=== PATIENT | female | born 1995 | race African-American/Black ===

== ENCOUNTER 2019-08-03 10:50 | Inpatient (IN) | payer MEDICAID, OTHER ==
[~2019-08-03] VITALS: Ht 157.5 cm; Wt 110.7 kg
[2019-08-03] MEDS ORDERED: SODIUM CHLORIDE 0.9% 1,000 ML IV ONE (11:21)
[2019-08-03] MEDS ORDERED: ACETAMINOPHEN 500MG TABLET PO ONE (11:30)
[2019-08-03] MEDS ORDERED: SODIUM CHLORIDE 0.9% 1000ML BAG (SEPSIS BOLUS) IV ONE (11:30)
[2019-08-03 12:12] LABS: BASOPHILS % 0.2 % (0.0-2.0); EOSINOPHILS % 0.1 % (0.0-5.0); HEMATOCRIT. 38.7 % (36.0-48.0); HEMOGLOBIN. 13.1 g/dL (12.0-16.0); LYMPHOCYTES % 13.9 % (20.0-50.0); MEAN CORPUSCULAR HEMOGLOBIN 26.3 pg (28.0-32.0); MEAN CORPUSCULAR VOLUME 77.6 fL (81.0-99.0); MEAN PLATELET VOLUME 9.5 fl (7.4-10.4); MONOCYTES % 4.6 % (2.0-8.0); NEUTROPHILS % 81.2 % (40.0-76.0); PLATELET 218 x1000/uL (130-400); RED BLOOD CELL COUNT 4.99 mill/uL (4.2-5.4); RED CELL DISTRIBUTION WIDTH 16.4 % (11.6-14.6)
[2019-08-03 12:17] LABS: CHLORIDE 105 mEq/L (98-107)
[2019-08-03 12:26] LABS: CREATINE KINASE 130 IU/L (26-192); D-DIMER 0.53 mg/L FEU (<0.50); INR 0.9; PROTHROMBIN TIME 10.3 sec (9.6-11.0)
[2019-08-03 12:39] LABS: CLARITY URINE CLEAR (CLEAR); COLOR URINE DARK YELLOW (YELLOW); KETONES URINE TRACE (NEGATIVE); LEUKOCYTE ESTERASE URINE TRACE (NEGATIVE); NITRITE URINE NEGATIVE (NEGATIVE); OCCULT BLOOD URINE NEGATIVE (NEGATIVE); PROTEIN URINE 1+ (NEGATIVE); SPECIFIC GRAVITY URINE 1.029 (1.005-1.030)
[2019-08-03] MEDS ORDERED: POTASSIUM CHLORIDE 20MEQ TABLET SR PO NR (13:00)
[2019-08-03] MEDS ORDERED: ONDANSETRON HCL 4MG/2ML INJ IV PRN (13:00)
[2019-08-03] MEDS ORDERED: ALBUTEROL 6.7GM HFA INHALER ORI ONE (13:30)
[2019-08-03] MEDS ORDERED: CEFTRIAXONE 1 G PREMIX 50 ML IV SCH (14:00)
[2019-08-03 14:39] LABS: *BARBITURATES SCREEN URINE NEGATIVE (NEGATIVE)
[2019-08-03 14:40] LABS: *AMPHETAMINES SCREEN URINE NEGATIVE (NEGATIVE); *BENZODIAZEPINES SCREEN URINE NEGATIVE (NEGATIVE); *COCAINE SCREEN URINE NEGATIVE (NEGATIVE); METHADONE URINE SCREEN NEGATIVE (NEGATIVE); OPIATES URINE SCREEN NEGATIVE (NEGATIVE); PHENCYCLIDINE URINE SCREEN NEGATIVE (NEGATIVE)
[2019-08-03 14:41] LABS: CANNABINOID URINE SCREEN NEGATIVE (NEGATIVE)
[2019-08-03] MEDS ORDERED: AZITHROMYCIN 500 MG in DEXT 5% WATER 250 ML IV NR (15:00)
[2019-08-03 17:59] VITALS: BP 129/83
[2019-08-03 20:00] VITALS: BP 113/67
[2019-08-03] MEDS ORDERED: HEPARIN 5000 UNITS/ML VIAL SUBCUT SCH (21:00)
[2019-08-04] VITALS: BP_SYST 102; BP_SYST 123; BP_DIAS 63; BP_DIAS 83
[2019-08-04 04:00] VITALS: BP 108/70
[2019-08-04] MEDS: GUAIFENESIN 600MG ER TABLET PO SCH ×2 (10:56→20:49)
[2019-08-04] MEDS: ACETAMINOPHEN 325MG TABLET PO PRN (11:50)
[2019-08-04 12:00] VITALS: BP 110/55
[2019-08-04 12:12] LABS: BASOPHILS % 0.2 % (0.0-2.0); EOSINOPHILS % 0.2 % (0.0-5.0); HEMATOCRIT. 38.7 % (36.0-48.0); HEMOGLOBIN. 12.7 g/dL (12.0-16.0); LYMPHOCYTES % 14.8 % (20.0-50.0); MEAN CORPUSCULAR HEMOGLOBIN 25.4 pg (28.0-32.0); MEAN CORPUSCULAR VOLUME 77.7 fL (81.0-99.0); MEAN PLATELET VOLUME 9.8 fl (7.4-10.4); MONOCYTES % 5.3 % (2.0-8.0); NEUTROPHILS % 79.5 % (40.0-76.0); PLATELET 246 x1000/uL (130-400); RED BLOOD CELL COUNT 4.99 mill/uL (4.2-5.4); RED CELL DISTRIBUTION WIDTH 16.8 % (11.6-14.6)
[2019-08-04 12:19] LABS: CHLORIDE 108 mEq/L (98-107)
[2019-08-04 12:30] LABS: HCG SCREEN NEGATIVE
[2019-08-04] MEDS ORDERED: POTASSIUM CHLORIDE 20MEQ TABLET SR PO SCH (13:00)
[2019-08-04] MEDS ORDERED: AZITHROMYCIN 250 MG in DEXT 5% WATER 250 ML IV SCH (15:00)
[2019-08-04] MEDS: ENOXAPARIN 120MG/0.8ML SYR SUBCUT SCH ×2 (15:19→20:49)
[2019-08-04] MEDS: ALBUTEROL 6.7GM HFA INHALER ORI SCH ×2 (15:30→18:00)
[2019-08-04 16:00] VITALS: BP 110/58
[2019-08-04] MEDS: CEFTRIAXONE 1 G PREMIX 50 ML IV SCH (16:54)
[2019-08-04 20:00] VITALS: BP 101/61
[2019-08-05] VITALS: BP 122/83
[2019-08-05 04:00] VITALS: BP 100/60
[2019-08-05] MEDS: ALBUTEROL 6.7GM HFA INHALER ORI SCH ×3 (06:00→12:00)
[2019-08-05 07:17] LABS: BASOPHILS % 0.4 % (0.0-2.0); EOSINOPHILS % 1.3 % (0.0-5.0); HEMATOCRIT. 34.7 % (36.0-48.0); HEMOGLOBIN. 11.4 g/dL (12.0-16.0); MEAN CORPUSCULAR HEMOGLOBIN 25.6 pg (28.0-32.0); MEAN CORPUSCULAR VOLUME 77.8 fL (81.0-99.0); MONOCYTES % 8.4 % (2.0-8.0); NEUTROPHILS % 56.9 % (40.0-76.0); PLATELET 230 x1000/uL (130-400); RED BLOOD CELL COUNT 4.46 mill/uL (4.2-5.4); RED CELL DISTRIBUTION WIDTH 16.5 % (11.6-14.6)
[2019-08-05 07:27] LABS: CHLORIDE 107 mEq/L (98-107)
[2019-08-05] MEDS: ACETYLCYSTEINE 100MG/ML 10% VIAL 4ML INH SCH ×2 (08:03→21:08)
[2019-08-05] MEDS: ENOXAPARIN 120MG/0.8ML SYR SUBCUT SCH ×2 (09:30→20:22)
[2019-08-05] MEDS: GUAIFENESIN 600MG ER TABLET PO SCH ×2 (09:30→20:22)
[2019-08-05] MEDS: ACETAMINOPHEN 325MG TABLET PO PRN (13:45)
[2019-08-05] MEDS ORDERED: IPRATROPIUM/ALBUTEROL 0.5-3(2.5)MG/3ML NEB HHN PRN (14:15)
[2019-08-05] MEDS: CEFTRIAXONE 1 G PREMIX 50 ML IV SCH (14:48)
[2019-08-05 17:30] VITALS: BP 107/60
[2019-08-05 20:00] VITALS: BP 108/69
[2019-08-05] MEDS: IPRATROPIUM/ALBUTEROL 0.5-3(2.5)MG/3ML NEB HHN SCH (21:08)
[2019-08-06] VITALS: BP 111/67
[2019-08-06] MEDS: IPRATROPIUM/ALBUTEROL 0.5-3(2.5)MG/3ML NEB HHN SCH ×4 (01:40→22:14)
[2019-08-06 04:00] VITALS: BP 106/66
[2019-08-06 06:36] LABS: BASOPHILS % 0.3 % (0.0-2.0); EOSINOPHILS % 1.7 % (0.0-5.0); HEMATOCRIT. 34.9 % (36.0-48.0); HEMOGLOBIN. 11.8 g/dL (12.0-16.0); LYMPHOCYTES % 40.7 % (20.0-50.0); MEAN CORPUSCULAR HEMOGLOBIN 26.1 pg (28.0-32.0); MEAN CORPUSCULAR VOLUME 76.9 fL (81.0-99.0); MEAN PLATELET VOLUME 9.3 fl (7.4-10.4); MONOCYTES % 8.6 % (2.0-8.0); NEUTROPHILS % 48.7 % (40.0-76.0); PLATELET 267 x1000/uL (130-400); RED BLOOD CELL COUNT 4.54 mill/uL (4.2-5.4); RED CELL DISTRIBUTION WIDTH 16.6 % (11.6-14.6)
[2019-08-06 07:08] LABS: CHLORIDE 105 mEq/L (98-107)
[2019-08-06 08:00] VITALS: BP_SYST 114; BP_SYST 115; BP_DIAS 80; BP_DIAS 86
[2019-08-06] MEDS: AZITHROMYCIN 250 MG TABLET PO SCH (09:21)
[2019-08-06] MEDS: GUAIFENESIN 600MG ER TABLET PO SCH ×2 (09:21→21:10)
[2019-08-06] MEDS: ENOXAPARIN 120MG/0.8ML SYR SUBCUT SCH ×2 (09:22→21:11)
[2019-08-06 12:00] VITALS: BP 115/80
[2019-08-06] MEDS: CEFTRIAXONE 1 G PREMIX 50 ML IV SCH (14:09)
[2019-08-06] MEDS ORDERED: GUAIFENESIN-DM 200MG-20MG/10ML UDC PO PRN (14:30)
[2019-08-06 16:00] VITALS: BP 122/93
[2019-08-06 20:00] VITALS: BP 95/59
[2019-08-06] MEDS ORDERED: GUAIFENESIN-DM 200MG-20MG/10ML UDC PO SCH (21:00)
[2019-08-07] VITALS: BP 115/76
[2019-08-07 07:31] LABS: BASOPHILS % 0.4 % (0.0-2.0); EOSINOPHILS % 1.7 % (0.0-5.0); HEMATOCRIT. 35.4 % (36.0-48.0); HEMOGLOBIN. 11.7 g/dL (12.0-16.0); LYMPHOCYTES % 33.1 % (20.0-50.0); MEAN CORPUSCULAR HEMOGLOBIN 25.5 pg (28.0-32.0); MEAN CORPUSCULAR VOLUME 77.1 fL (81.0-99.0); MEAN PLATELET VOLUME 9.1 fl (7.4-10.4); MONOCYTES % 7.6 % (2.0-8.0); NEUTROPHILS % 57.2 % (40.0-76.0); PLATELET 274 x1000/uL (130-400); RED BLOOD CELL COUNT 4.59 mill/uL (4.2-5.4); RED CELL DISTRIBUTION WIDTH 16.7 % (11.6-14.6)
[2019-08-07 07:57] LABS: CHLORIDE 105 mEq/L (98-107)
[2019-08-07] MEDS: AZITHROMYCIN 250 MG TABLET PO SCH (08:51)
[2019-08-07] MEDS: GUAIFENESIN 600MG ER TABLET PO SCH (08:55)
[2019-08-07] MEDS: ENOXAPARIN 120MG/0.8ML SYR SUBCUT SCH (08:56)
[2019-08-07] MEDS: IPRATROPIUM/ALBUTEROL 0.5-3(2.5)MG/3ML NEB HHN SCH ×2 (10:07→14:51)
[2019-08-07] MEDS: ACETYLCYSTEINE 100MG/ML 10% VIAL 4ML INH SCH (10:07)
[2019-08-07] MEDS ORDERED: TUSSL PO (12:34)
[2019-08-07] MEDS ORDERED: MENT10LO8 MM (12:34)
[2019-08-07] MEDS ORDERED: AZIT500T8 MT (12:34)
[2019-08-07 14:10] VITALS: BP 109/92
[2019-08-07] MEDS ORDERED: IPRATROPIUM/ALBUTEROL 0.5-3(2.5)MG/3ML NEB HHN SCH (22:00)
== END 2019-08-07 15:30 | disposition home or self-care (01) | DRG 720 ==
LOC: ER 10:50 → 7EST 11:31 → ENRESERV 16:27 → 6WST 08-05 17:20
PROVIDERS: ADMIT Internal Medicine; ATTEND Internal Medicine
DX: A41.9 Sepsis, unspecified organism (principal); J96.01 Acute respiratory failure with hypoxia; E46 Unspecified protein-calorie malnutrition; D68.59 Other primary thrombophilia; J15.9 Unspecified bacterial pneumonia; E66.01 Morbid (severe) obesity due to excess calories; I31.3 Pericardial effusion (noninflammatory); R65.20 Severe sepsis without septic shock; E87.6 Hypokalemia; B97.89 Other viral agents as the cause of diseases classified elsewhere; J40 Bronchitis, not specified as acute or chronic; R74.0 Nonspecific elevation of levels of transaminase and lactic acid dehydrogenase [LDH]; Z20.828 Contact with and (suspected) exposure to other viral communicable diseases; Z68.41 Body mass index [BMI] 40.0-44.9, adult
CPT/HCPCS: 36415; 71045; 80053; 80305; 81003; 82550; 82728; 83605; 83615; 83735; 83880; 84145; 84484; 84703; 85025; 85379; 85384; 86140; 93005; 93306; 94640; 99285; J0456; J0696; J1644; J1650; J2405; J7030; J7060; J7608; U0003-CS